=== PATIENT | male | born 2000 | race Caucasian/White ===

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

== ENCOUNTER 2021-02-26 13:05 | Emergency (ER) | payer MEDICAID, OTHER ==
[~2021-02-26] VITALS: Ht 182.9 cm; Wt 63.6 kg
[~2021-02-26 13:05] MED LIST changes: +ALBU8.5H17 IH; -ALBU8.5H8 IH
[2021-02-26 13:11] VITALS: BP 110/75
== END 2021-02-26 14:17 | disposition home or self-care (01) ==
LOC: ER 13:05
DX: R05 Cough (principal); Z20.822 Contact with and (suspected) exposure to COVID-19; R09.81 Nasal congestion; Z79.899 Other long term (current) drug therapy
CPT/HCPCS: 36415; 99283; U0003; U0005

== ENCOUNTER 2021-11-30 09:42 | Emergency (ER) | payer MEDICAID ==
[~2021-11-30] VITALS: Ht 182.9 cm; Wt 71.0 kg
[2021-11-30 10:13] VITALS: BP 100/70
[2021-11-30] MEDS ORDERED: AMOX-117 PO (10:38)
[2021-11-30] MEDS ORDERED: amox tr/potassium clavulanate 875/125mg TAB PO ONE (10:40)
== END 2021-11-30 10:55 | disposition home or self-care (01) ==
LOC: ER 09:43
DX: J02.9 Acute pharyngitis, unspecified (principal); R50.9 Fever, unspecified; R53.83 Other fatigue; Z79.899 Other long term (current) drug therapy
CPT/HCPCS: 99283

== ENCOUNTER 2022-03-22 10:39 | Emergency (ER) | payer MEDICAID ==
[~2022-03-22] VITALS: Ht 182.9 cm; Wt 68.2 kg
[2022-03-22 11:05] VITALS: BP 112/60
== END 2022-03-22 13:30 | disposition left against medical advice (07) ==
LOC: ER 10:40
DX: J02.0 Streptococcal pharyngitis (principal); Z53.21 Procedure and treatment not carried out due to patient leaving prior to being seen by health care provider

== ENCOUNTER 2023-12-05 13:55 | Emergency (ER) | payer MEDICAID ==
[~2023-12-05] VITALS: Ht 182.9 cm; Wt 87.6 kg
[2023-12-05 14:37] LABS: BILIRUBIN,URINE NEGATIVE (Neg); CLARITY,URINE CLEAR (Clear); COLOR,URINE STRAW (Yellow); GLUCOSE, URINE NEGATIVE (Neg); KETONES,URINE NEGATIVE (Neg); LEUKOCYTE ESTERASE ,URINE SMALL (Neg); NITRITES, URINE NEGATIVE (Neg); OCCULT BLOOD,URINE TRACE-INTACT (Neg); PH,URINE 6.5 (4.8-8.0); PROTEIN,URINE NEGATIVE (Neg); UROBILINOGEN,URINE 0.2 E.U/dL (0.2-1.0)
[2023-12-05 14:47] LABS: UA COLLECTION TYPE CLN CATCH MIDSTREAM
[2023-12-05 15:01] LABS: RBC,URINE 0-2 /HPF (0-2)
[2023-12-05 15:02] LABS: BACTERIA,URINE NONE SEEN /HPF (Neg)
[2023-12-05 15:03] LABS: SQUAMOUS EPITHELIAL CELL,UR FEW /LPF (FEW); WBC CLUMPS,URINE FEW /HPF (NEGATIVE); WBC,URINE 50-100 /HPF (0-4)
[2023-12-05 17:55] VITALS: BP 109/68; PULSE 85; RESP 16; TEMP 98.5; O2SAT 99
== END 2023-12-05 17:58 | disposition home or self-care (01) ==
LOC: ER 13:55
DX: B34.9 Viral infection, unspecified (principal); Z79.899 Other long term (current) drug therapy
CPT/HCPCS: 71045; 81001; 87077; 87088; 87186; 87502; 87503; 99284